=== PATIENT | male | born 1960 | race Caucasian/White ===

== ENCOUNTER 2020-07-04 23:43 | Inpatient (IN) | payer OTHER ==
[~2020-07-04] VITALS: Ht 177.8 cm; Wt 89.0 kg
[~2020-07-04 23:43] MED LIST: ALPR.5 PO; ASPI325 PO; ATEN100; ATEN100 PO; ATOR80 PO; CLOP75 PO; Cymbalta30 MG PO; Cymbalta60 MG PO; FENO160 PO; GABA600 PO; GLYB2.5 PO; GLYB5 PO; HYDACE5 PO; HYDACE7.5 PO; HYDROCODON-ACE1 EACH PO; ISOMON30; ISOMON30 PO; LIRA0.6P; LISI5 PO; LOVA20 PO; MECL25 PO; METF500C PO; METO25; METO50 PO; MULVITMIND PO; NAPR220 PO; NICO14TP TOP; Nitroglycerin0.4 MG SL; Norco 7.5-3251 EACH PO; OMEP20ER PO; ONGLYZA PO; PANT40 PO; Q PAP PO; RANI150; RANO500T PO; Ranexa1000 MG; SILSUL1TC TOP; TEMA15 PO; TERA5 PO; Venlafaxine H37.5 MG PO; [UNRECOGNIZED DRUG - REMARK]
[2020-07-04] MEDS ORDERED: TRAZ50 PO (23:52)
[2020-07-05 00:32] LABS: BASOPHILS ABSOLUTE AUTO 0.05 K/mm3 (0.00-0.23); BASOPHILS PERCENT AUTO 1 % (0-2); EOSINOPHILS ABSOLUTE AUTO 0.17 K/mm3 (0.00-0.68); EOSINOPHILS PERCENT AUTO 2 % (0-6); Hematocrit 42.3 % (37.0-53.0); Hemoglobin 13.9 g/dL (13.5-17.5); IMMATURE GRAN ABSOLUTE AUTO 0.06 K/mm3 (0.00-0.10); IMMATURE GRAN PERCENT AUTO 1 % (0-1); LYMPHOCYTES ABSOLUTE AUTO 1.45 K/mm3 (0.84-5.20); LYMPHOCYTES PERCENT AUTO 16 % (21-46); MONOCYTES ABSOLUTE AUTO 0.92 K/mm3 (0.16-1.47); MONOCYTES PERCENT AUTO 10 % (4-13); Mean Corpuscular HGB 30.3 pg (26.0-34.0); Mean Corpuscular HGB Conc 32.9 g/dL (31.5-36.5); Mean Corpuscular Volume 92 fL (80-100); Mean Platelet Volume 10.1 fL (9.1-12.4); NEUTROPHILS ABSOLUTE AUTO 6.38 K/mm3 (1.96-9.15); NEUTROPHILS PERCENT AUTO 71 % (41-73); Platelet Count 165 K/mm3 (150-400); RDW Coefficient Variation 12.7 % (11.7-14.2); RDW Standard Deviation 43.1 fL (35.1-46.3); Red Blood Cell Count 4.59 M/mm3 (4.30-5.90); White Blood Cell Count 9.03 K/mm3 (4.00-11.30)
[2020-07-05 01:01] LABS: Alanine Aminotransfer (ALT/SGP 22 U/L (12-78); Albumin, Blood 4.2 g/dL (3.4-5.0); Albumin/Globulin Ratio 1.1 (0.8-1.8); Alk Phos 48 U/L (50-136); Anion Gap 10 mmol/L (6-16); Aspartate Aminotrans (AST/SGOT 17 U/L (12-37); Bilirubin, Total 0.4 mg/dL (0.1-1.0); Blood Urea Nitrogen 21 mg/dL (8-24); Bun/Creatinine Ratio 24.5 (12.0-20.0); CO2, Blood 22 mmol/L (21-32); Calcium, Blood 9.2 mg/dL (8.5-10.1); Chloride, Blood 104 mmol/L (98-108); Creatinine, Blood 0.86 mg/dL (0.60-1.20); Globulin, Blood 3.9 g/dL (2.2-4.0); Glomerular Filtration Rate >60 (60-); Glucose, Blood 164 mg/dL (70-99); Magnesium, Blood 1.9 mg/dL (1.6-2.4); Potassium, Blood 4.1 mmol/L (3.5-5.5); Sodium, Blood 136 mmol/L (136-145); Total Protein, Blood 8.1 g/dL (6.4-8.2); Troponin I <0.015 ng/mL (0.000-0.040)
[2020-07-05] MEDS ORDERED: JARDIANCE10 MG PO (05:27)
[2020-07-05] MEDS ORDERED: LIDO700A20 TOP (05:27)
[2020-07-05] MEDS ORDERED: LOSA25 PO (05:28)
[2020-07-05] MEDS ORDERED: NITR.4SL SL (05:29)
[2020-07-05] MEDS ORDERED: DIVA500ER PO (05:31)
[2020-07-05] MEDS ORDERED: LAMOTRIGINE100 M1 PO (05:32)
--- NOTE | 2020-07-05 07:39 | NUR ---
SHIFT SUMMARY PT ARRIVED TO THE UNIT AROUND 0530 IN STABLE CONDITION. PAIN LEVEL REPORTED AT 2/10 AFTER DILAUDID ADMIN IN THE ER. PAIN WAS IN ABD AND CHEST. VITALS STABLE, BP 123/92, HR 81, O2 99% ON ROOM AIR. PT WAS PLEASENT AND COOPERATIVE WITH CARE. THIS NURSE ONLY HAD PT FOR SHORT TIME, UNABLE TO COMPLETE FULL CHARTING. PT ASSESSMENT COMPLETED.
--- NOTE | 2020-07-05 19:43 | NUR ---
SHIFT SUMMARY PT IS A&O X4, VSS, ON RA, INDEPENDENT IN THE ROOM. PAIN MANAGED WITH 1 MG IV DILAUDID. PT HAS COMPLETED PART 1 OF HIS STRESS TEST THIS AM. HAS CONSULTED, ADDITIONAL ABX ORDERED, PT NPO EXCEPT FOR SIPS/CHIPS. HE DENIES NAUSEA. PT ENC TO MINIMIZE PO INTAKE TO DECREASE GASTRIC ACTIVITY. NO OTHER ACUTE CHANGES NOTED. REPORT GIVEN TO DONALDO MARSHALL.
--- NOTE | 2020-07-06 02:05 | NUR ---
ASSUMED CARE AT 1900. REPORTS LATER 5/10 CP AND EXPECTS TO BE ABOUT 2. MID STERNAL CP AND NO RADIATING. DOES NOT FEEL IT IS A PAIN IN STOMACH. DOES RERPORT NAUSEA DUE TO LOWER BLOOD SUGAR AND WHEN BLOOD SUGAR CHECKED 118. HE REPORTS THAT IS LOW FOR HIM AND THAT IS WHY HE IS NAUSEATED. ZOFRAN AND DILAUDID VERY HELPFUL AND OFF TO SLEEP/ [employer] NOTED NOT O2 USED AND NO SOB REPORTED ON EXERTION.SR
--- NOTE | 2020-07-06 06:04 | NUR ---
SHIFT SUMMARY. NO CHANGE FORM ABOVE NOTE. ONE MORE EPISODE OF 5/10 LOCALIZED CP AT LT CHEST. POST LAST IV DILAUDID SLEPT A FEW HOURS AND RELIEF DOWN TO /10. SOME MOIST COUGH NON PRODUCTIVE. BACK TO SLEEP POST DILAUDID. REPORTS SOME MILD NAUSEA AND ZOFRAN GIVEN.. SR. ICE CHIPS. FEW SIPS H2O . NPO FOR STRESS TEST THIS AM.
--- NOTE | 2020-07-06 17:34 | NUR ---
PATIENT IS ALERT AND ORIENTED AND COOPERATIVE WITH CARE. PATIENT C/O RUQ TENDERNESS AND LEFT SIDED LOCAL CHEST PAIN, TREATED PER EMAR. NO COMPLAINTS OF NAUSEA TODAY. DR. RUIZ SAW THE PATIENT TODAY AND CHANGED HIM TO A CLEAR LIQUID DIET, PATIENT IS TOLERATING IT WELL. PATIENT USES THE URINAL AT THE BEDSIDE. PATIENT HAD A SMALL SOFT BM TODAY. THE PATIENT'S WAS AT THE BEDSIDE THIS AFTERNOON. THE CHEMICAL STRESS TEST WAS COMPLETED TODAY. WILL CONTINUE TO MONITOR.
[2020-07-07 05:36] LABS: Creatinine, Blood 0.97 mg/dL (0.60-1.20); Vancomycin, Trough 15.5 ug/mL (5.0-10.0)
--- NOTE | 2020-07-07 05:57 | NUR ---
SHIFT SUMMARY PT A&O X4. VSS. SPO2 > 92% ON RA. MONITOR SHOWS NSR, HR 60's-70's. PT REPORTS CONTINUED L CHEST "PRESSURE" & RUQ "TENDER" W/ PAIN SCALE RANGING 3-5 OUT OF 10 THIS SHIFT. PT REPORTS PAIN "GOES UP & DOWN. IF I DON'T DO SOMETHING ABOUT IT THE PAIN IN MY CHEST MOVES UP INTO MY NECK & JAW." PT MEDICATED W/ PRN IV DILAUDID PER EMAR/PT REQUEST X4 THIS SHIFT W/ PT REPORT OF IMPROVEMENT. PT ON CLEAR LIQUID DIET W/ PT INQUIRY OF WHEN SOLID FOODS MAY BE CONSUMED AGAIN.
--- NOTE | 2020-07-07 18:07 | NUR ---
PT SUMMARY: NO ACUTE CHANGE FOR THE SHIFT, VITALS HAS BEEN STABLE, PT HAS BEEN INDEPENDENT IN THE ROOM. PT CONTINUES TO C/O PAIN ON LEFT SIDE OF THE CHEST CONTROLLED WITH PRN IV MEDICATION DIALUDID, CARDIOLOGISTS CONSULTED DR SHANKS SAW PT TODAY, PT STARTED ON IMDUR, WILL DO ANGIO IN AM, NPO AT MIDNIGHT PT IS AWARE. PT REMAINED ON CLEAR LIQUID DIET FOR BOWEL REST. NO OTHER ISSUES ENCOUNTERED FOR THE SHIFT, PT AHS BEEN CALLING APPROPRIATELY, ABLE TO MAKE NEEDS KNOWN WILL MONITOR UNTIL END OF SHIFT
[2020-07-07] MEDS ORDERED: SERT100 PO (18:24)
--- NOTE | 2020-07-08 06:20 | NUR ---
SHIFT SUMMARY NO ACUTE CHANGES THIS SHIFT. PT A&OX4. SP02>92% ON RA. TELEMETRY READS SR, HR 70'S. PT C/O OF 5/10 L CHEST PAIN DURING SHIFT. MEDICATED W/ DUILADID PER EMAR. PT USED URINAL AT BEDSIDE. PT HAS BEEN NPO SINCE MIDNIGHT FOR ANGIO IN AM. PT C/O OF BEING NPO AND HIS CL DIET. PT STATES "WHEN IM DONE WITH THIS TEST, IM EATING A BIG BURGER". PT ASKED FOR L ARM IV TO BE REMOVED D/T INCONVIENCE OF TUBES CROSSING HIS BODY HE SLEPT. NEW IV PLACED IN L FOREARM. ABX INFUSED THIS SHIFT PER EMAR. PT SLEPT OFF AND ON T/O NIGHT. CALL LIGHT IN REACH. WILL GIVE REPORT TO ONCOMING SHIFT.
--- NOTE | 2020-07-08 08:00 | NUR ---
ASSUMED CARE FROM NOC RN PT WAS AWAKE AND IN BED AT THE TIME OF REPORT. PT IS ALERT AND ORIENTED, VS STABLE. PT REPORTS CONSTANT CHEST PAIN AND THAT THE DILAUDID HAS HELPED RELEIVE THE PAIN. PT IS INDEPENDENT IN THE ROOM AND AWAITING ANGIO THIS AFTERNOONT
--- NOTE | 2020-07-08 11:07 | NUR ---
RETURN FROM [employer] MACHINE OPERATOR PT RETURNED FROM [facility] MACHINE OPERATOR FOR ANGIO AT APPROXIMATELY 1040. TR BAND WAS IN PLACE, REPORTED HAVING 10ML OF AIR IN THE BAND. NO BLEEDING, SWELLING, REDNESS OR PAIN AT THE SITE. ARM BAND IN PLACE OVER TR BAND. PT HAS SENSATION IN HIS HAND AND RADIAL PULSE IS STRONG AND CAP REFILL LESS THAN 3. VS STABLE, PT REMAINS ON RA. PT IS STANDING AT THE BEDSIDE USING THE URINAL NOW.
--- NOTE | 2020-07-08 11:48 | NUR ---
TR BAND 15 MINUTE CHECKS SINCE RETURNING FROM [facility]. NO SWELLING, DRAINAGE, PAIN AT THE SITE. RADIAL PULSE IS STRONG AND CAP REFIL IS LESS THAN 3 SECONDS.
--- NOTE | 2020-07-08 12:55 | NUR ---
TR BAND TR BAND HAS NO DRAINAGE; NO SWELLING, NO REDNESS. PT DENIES PAIN AT THE SITE. RADIAL PULSE IS STRONG, PT HAS NORMAL SENSATION IN FINGERS AND CAP REFILL IS LESS THAN 3 SECONDS. 1ML OF AIR WAS REMOVED FROM THE TR BAND AT 1255 AND PT RIA. WELL; NO BLEEDING; VS STABLE
--- NOTE | 2020-07-08 14:04 | NUR ---
TR BAND DEFLATE TR BAND IS STILL IN PLACE WITH ARM BOARD ON TOP. 2ML OF AIR WAS REMOVED FOR A TOTAL OF 3ML AT THIS POINT. NO DRAINAGE, NO REDNESS, SWELLING APPARENT AT THE SITE. PT DENIES PAIN AND REPORTS HAVING NORMAL SENSATION. RADIAL PULSE STRONG. VS STABLE
--- NOTE | 2020-07-08 14:32 | NUR ---
TR BAND TR BAND REMOVED AN ADDITIONAL 2ML OF AIR. ARM BAND IN PLACE; PT DENIES PAIN OR DISCOMFORT. NO DRAINAGE, NO BLEEDING, COMPLETE SENSATION IN THE FINGERS, RADIAL PULSE STRONG. PT PREPARING FOR CT SCAN
--- NOTE | 2020-07-08 19:23 | NUR ---
NO ACUTE EVENTS THIS SHIFT, PATIENT RADIAL ANGIO SITE RECOVERED, NO DISCHARGE/HEMATOMA NOTED. PATIENT CONTINUED TO COMPLAIN OF GASTRIC PAIN, RELIEVED WITH DILAUDID ADMINISTERED PER EMAR. NO STENTS PLACED, PLANS ARE FOR ANTIANGINAL MANAGEMENT UNTIL GI ISSUES RESOLVED BEFORE OTHER OPTIONS PURSUED. PATIENT IS ALERT AND ORIENTED, VSS, STARTED IN INCREASED DOSES OF METOPROLOL AND IMDUR THIS SHIFT.
[2020-07-09] MEDS ORDERED: GEMF600 PO (00:23)
--- NOTE | 2020-07-09 04:48 | NUR ---
SHIFT SUMMARY NO ACUTE CHANGES THIS SHIFT. PT A&OX4. SP02>92% ON RA. TELEMETRY READS SR, HR 70'S-90'S. PT HAS R RADIAL SITE, NO BLEEDING, BRUISING, OR HEMATOMA. DRESSING WAS ROLLING BACK UPON CARE ASSUMPTION, NEW OPSITE DRESSING PLACED. C/D/I. ARM BOARD IN PLACE. PT C/O OF 5/10 CP/UPPER GASTRIC PAIN, MEDICATED W/ DIULADID X3 THIS SHIFT. PT UP TO BATHROOM INDEPENDENTLY. ABX INFUSED THIS SHIFT. PT WAS ABLE TO SLEEP OFF AND ON T/O NIGHT. CALL LIGHT IN REACH. WILL GIVE REPORT TO ONCOMING SHIFT NURSE.
--- NOTE | 2020-07-09 08:06 | NUR ---
ASSUMED CARE FROM NOC RN PT WAS AWAKE AND WATCHING TV AT TIME OF REPORT. TR BAND WAS REMOVED YESTERDAY, THERE WAS SOME SLIGHT REDNESS AFTER REMOVAL AT THE SITE BUT IT HAS LESSENED BASED ON THE [place] THAT WAS DRAWN AROUND THE REDNESS ON THE WRIST. PT DENIES PAIN OR DISCOMFORT AT THE SITE BUT CONTINUES TO HAVE GASTRIC DISCOMFORT. PT IS INDEPENDENT IN THE ROOM, HAVING BREAKFAST WHILE AWAITING MORNING MEDICATIONS
[2020-07-09] MEDS ORDERED: METO25ER PO (11:46)
[2020-07-09] MEDS ORDERED: Isosorbide Mono30 MG PO (11:47)
[2020-07-09] MEDS ORDERED: CLIN150 PO (11:47)
[2020-07-09] MEDS ORDERED: OXAYDO5 M1 PO (11:48)
--- NOTE | 2020-07-09 13:01 | NUR ---
DISCHARGE PT DISCHARGED AT APPROXIMATELY 1255. PT WAS STABLE. RADIAL SITE DRESSING WAS C/D/I, NO DRAINAGE, PAIN, SWELLING OR REDNESS NOTED. VS STABLE, PT ON RA AND ABLE AND WANTING TO WALK OUT TO THE DOOR FOR DISCHARGE. PT WAS ACCOMPANIED BY RN HALEY TO THE DOOR. PT LEFT WITH HOME MEDICATIONS, DISCHARGE INSTRUCTIONS AND WRITTEN SCRIPT FOR PAIN MEDICATION. PT WAS EDUCATED ON NEW MEDICATIONS TO BE STARTED AT HOME WELL CARE FOR THE RADIAL SITE. PT WAS INSTRUCTED TO CALL IF ANY SIGNS OF BLEEDING OR INFECTION WERE PRESENT AT THE SITE. PT GAVE VERBAL UNDERSTANDING AND SIGNED THE DISCHARGE AGREEMENT.
== END 2020-07-09 13:00 | disposition home health service (06) | DRG 287 ==
LOC: ER 23:43 → PCU 07-05 03:09
PROVIDERS: Emergency Medicine; Surgery; ADMIT Internal Medicine
PROC: 4A023N7 Measurement of Cardiac Sampling and Pressure, Left Heart, Percutaneous Approach (ICD-10-PCS; principal; 2020-07-08)
PROC: B2111ZZ Fluoroscopy of Multiple Coronary Arteries using Low Osmolar Contrast (ICD-10-PCS; 2020-07-08)
DX: I25.110 Atherosclerotic heart disease of native coronary artery with unstable angina pectoris (principal); K29.60 Other gastritis without bleeding; I10 Essential (primary) hypertension; E11.9 Type 2 diabetes mellitus without complications; J44.9 Chronic obstructive pulmonary disease, unspecified; K21.9 Gastro-esophageal reflux disease without esophagitis; M54.9 Dorsalgia, unspecified; F32.9 Major depressive disorder, single episode, unspecified; Z87.891 Personal history of nicotine dependence
CPT/HCPCS: 36415; 71046; 74150; 74176; 76937; 78452; 80053; 80202; 82565; 82947; 83690; 83735; 83880; 84484; 85025; 85347; 93005; 93010; 93017; 93458; 96374; 96375; 96376; 99152; 99153; 99285-25; A9270; A9500; C1769; C1887; C1894; J0692; J0706; J1170; J1644; J1650; J2250; J2270; J2405; J2543; J2785; J3010; J3370; J7030; J7050; J7120; J7512; Q9967

== ENCOUNTER → 2020-08-23 | Outpatient (CLI) | payer OTHER ==
[~2020-08-23] MED LIST changes: +CLIN150 PO; +DIVA500ER PO; +GEMF600 PO; +Isosorbide Mono30 MG PO; +JARDIANCE10 MG PO; +LAMOTRIGINE100 M1 PO; +LIDO700A20 TOP; +LOSA25 PO; +METO25ER PO; +NITR.4SL SL; +OXAYDO5 M1 PO; +SERT100 PO; +TRAZ50 PO
[2020-08-23 15:49] LABS: U Amphetamine Screen Not Detected; U Methamphetamine Screen Not Detected
[2020-08-23 15:50] LABS: U Barbituate Screen Not Detected; U Benzodiazapine Screen Not Detected
[2020-08-23 15:51] LABS: U Buprenorphine Screen Not Detected; U Cannabinoids Screen DETECTED; U Cocaine Screen Not Detected; U Methadone Screen Not Detected; U Opiates Screen DETECTED; U Oxycodone Screen Not Detected; U Phencyclidine Screen Not Detected; U Propoxyphene Screen Not Detected
[2020-08-29 15:07] LABS: TRICYCLIC ANTIDEP Negative ng/mL (Cutoff=100)
[2020-08-30 11:56] LABS: CARBOXY-THC 355 (.)
== END | disposition home or self-care (01) ==
LOC: LAB SHORT 13:26 → LAB 13:26
PROVIDERS: Internal Medicine Hematology & Oncology
DX: Z51.81 Encounter for therapeutic drug level monitoring (principal); Z79.899 Other long term (current) drug therapy
CPT/HCPCS: G0480; G0481

== ENCOUNTER 2020-10-04 08:41 | Day surgery (SDC) | payer OTHER ==
[~2020-10-04] VITALS: Ht 177.8 cm; Wt 91.4 kg
[2020-10-04] MEDS ORDERED: Norco 7.5-3251 EACH PO (09:03)
== END 2020-10-04 11:06 | disposition home or self-care (01) ==
LOC: ORSCSDS 08:41
PROVIDERS: Student in an Organized Health Care Education/Training Program
PROC: 0DB78ZX Excision of Stomach, Pylorus, Via Natural or Artificial Opening Endoscopic, Diagnostic (ICD-10-PCS; principal; 2020-10-04 10:00)
PROC: 0DBN8ZX Excision of Sigmoid Colon, Via Natural or Artificial Opening Endoscopic, Diagnostic (ICD-10-PCS; principal; 2020-10-04 10:00)
PROC: 0DB98ZX Excision of Duodenum, Via Natural or Artificial Opening Endoscopic, Diagnostic (ICD-10-PCS; principal; 2020-10-04 10:00)
PROC: 0DBH8ZX Excision of Cecum, Via Natural or Artificial Opening Endoscopic, Diagnostic (ICD-10-PCS; principal; 2020-10-04 10:00)
PROC: 0DB48ZX Excision of Esophagogastric Junction, Via Natural or Artificial Opening Endoscopic, Diagnostic (ICD-10-PCS; principal; 2020-10-04 10:00)
DX: K21.9 Gastro-esophageal reflux disease without esophagitis (principal); R10.13 Epigastric pain; Z86.010 Personal history of colon polyps; Z80.0 Family history of malignant neoplasm of digestive organs; D12.5 Benign neoplasm of sigmoid colon; D12.0 Benign neoplasm of cecum; D37.4 Neoplasm of uncertain behavior of colon; K64.8 Other hemorrhoids; K29.70 Gastritis, unspecified, without bleeding; I25.10 Atherosclerotic heart disease of native coronary artery without angina pectoris; E11.9 Type 2 diabetes mellitus without complications; E78.5 Hyperlipidemia, unspecified; K76.0 Fatty (change of) liver, not elsewhere classified; Z79.899 Other long term (current) drug therapy; Z79.82 Long term (current) use of aspirin; Z79.84 Long term (current) use of oral hypoglycemic drugs; Z87.891 Personal history of nicotine dependence
CPT/HCPCS: 82947; 88305; 88342; J2704; J7120

== ENCOUNTER → 2022-02-27 | Outpatient (CLI) | payer OTHER ==
[2022-02-27 18:54] LABS: BASOPHILS ABSOLUTE AUTO 0.07 K/mm3 (0.00-0.23); BASOPHILS PERCENT AUTO 1 % (0-2); EOSINOPHILS ABSOLUTE AUTO 0.17 K/mm3 (0.00-0.68); EOSINOPHILS PERCENT AUTO 4 % (0-6); Hematocrit 40.6 % (37.0-53.0); Hemoglobin 13.7 g/dL (13.5-17.5); IMMATURE GRAN ABSOLUTE AUTO 0.03 K/mm3 (0.00-0.10); IMMATURE GRAN PERCENT AUTO 1 % (0-1); LYMPHOCYTES ABSOLUTE AUTO 1.18 K/mm3 (0.84-5.20); LYMPHOCYTES PERCENT AUTO 24 % (21-46); MONOCYTES ABSOLUTE AUTO 0.65 K/mm3 (0.16-1.47); MONOCYTES PERCENT AUTO 13 % (4-13); Mean Corpuscular HGB 32.4 pg (26.0-34.0); Mean Corpuscular HGB Conc 33.7 g/dL (31.5-36.5); Mean Corpuscular Volume 96 fL (80-100); Mean Platelet Volume 10.3 fL (9.1-12.4); NEUTROPHILS ABSOLUTE AUTO 2.81 K/mm3 (1.96-9.15); NEUTROPHILS PERCENT AUTO 57 % (41-73); Platelet Count 172 K/mm3 (150-400); RDW Coefficient Variation 13.1 % (11.7-14.2); RDW Standard Deviation 45.8 fL (35.1-46.3); Red Blood Cell Count 4.23 M/mm3 (4.30-5.90); White Blood Cell Count 4.91 K/mm3 (4.00-11.30)
[2022-02-27 19:47] LABS: Free Thyroxine 1.06 ng/dL (0.70-1.60); LDL/HDL RATIO 2.7; Prostate Specific Antigen 0.465 ng/mL (0.000-4.000); Very Low Density Lipoprot Chol 65 mg/dL (6-32)
[2022-02-27 19:48] LABS: Alanine Aminotransfer (ALT/SGP 18 U/L (12-78); Albumin, Blood 4.1 g/dL (3.4-5.0); Albumin/Globulin Ratio 1.1 (0.8-1.8); Alk Phos 53 U/L (50-136); Anion Gap 8 mmol/L (6-16); Aspartate Aminotrans (AST/SGOT 11 U/L (12-37); Bilirubin, Total 0.4 mg/dL (0.1-1.0); Blood Urea Nitrogen 16 mg/dL (8-24); Bun/Creatinine Ratio 15.5 (12.0-20.0); CHOL/HDL RATIO 6.1; CO2, Blood 25 mmol/L (21-32); Calcium, Blood 9.7 mg/dL (8.5-10.1); Chloride, Blood 105 mmol/L (98-108); Cholesterol 165 mg/dL (50-200); Creatinine, Blood 1.03 mg/dL (0.60-1.20); Globulin, Blood 3.6 g/dL (2.2-4.0); Glomerular Filtration Rate 82 (60-); Glucose, Blood 180 mg/dL (70-99); HDL Cholesterol 27 mg/dL (>39); Low Density Lipoprotein Chol 73 mg/dL (0-110); Potassium, Blood 4.5 mmol/L (3.5-5.5); Sodium, Blood 138 mmol/L (136-145); Total Protein, Blood 7.7 g/dL (6.4-8.2); Triglycerides 327 mg/dL (30-160)
== END | disposition home or self-care (01) ==
LOC: LAB SHORT 10:30 → LAB FUT 02-27 12:45 → EDSTATUS 02-27 12:45
PROVIDERS: Family Medicine
DX: E78.5 Hyperlipidemia, unspecified (principal); N40.0 Benign prostatic hyperplasia without lower urinary tract symptoms
CPT/HCPCS: 80053; 80061; 84153; 84439; 84443; 85025

== ENCOUNTER → 2022-07-27 | Outpatient (CLI) | payer OTHER ==
[2022-07-27 15:23] LABS: U Cannabinoids Screen DETECTED; U Opiates Screen DETECTED
[2022-07-27 15:24] LABS: U Amphetamine Screen Not Detected; U Barbituate Screen Not Detected; U Benzodiazapine Screen Not Detected; U Buprenorphine Screen Not Detected; U Cocaine Screen Not Detected; U Methadone Screen Not Detected; U Methamphetamine Screen Not Detected; U Oxycodone Screen Not Detected; U Phencyclidine Screen Not Detected; U Propoxyphene Screen Not Detected
== END | disposition home or self-care (01) ==
LOC: LAB SHORT 10:50 → LAB 10:50
PROVIDERS: Internal Medicine Hematology & Oncology
DX: Z51.81 Encounter for therapeutic drug level monitoring (principal); Z79.899 Other long term (current) drug therapy

== ENCOUNTER → 2022-09-20 | Outpatient (CLI) | payer OTHER ==
[2022-09-20 18:55] LABS: U Amphetamine Screen Not Detected; U Barbituate Screen Not Detected; U Benzodiazapine Screen DETECTED; U Buprenorphine Screen Not Detected; U Cannabinoids Screen DETECTED; U Cocaine Screen Not Detected; U Methadone Screen Not Detected; U Methamphetamine Screen Not Detected; U Opiates Screen DETECTED; U Oxycodone Screen Not Detected; U Phencyclidine Screen Not Detected; U Propoxyphene Screen Not Detected
== END | disposition home or self-care (01) ==
LOC: LAB 13:04 → LAB SHORT 13:04
PROVIDERS: Internal Medicine Hematology & Oncology
DX: Z51.81 Encounter for therapeutic drug level monitoring (principal); Z79.899 Other long term (current) drug therapy

== ENCOUNTER → 2022-11-21 | Outpatient (CLI) | payer OTHER ==
[2022-11-21 17:59] LABS: U Cannabinoids Screen DETECTED; U Opiates Screen DETECTED
[2022-11-21 18:00] LABS: U Amphetamine Screen Not Detected; U Barbituate Screen Not Detected; U Benzodiazapine Screen Not Detected; U Buprenorphine Screen Not Detected; U Cocaine Screen Not Detected; U Methadone Screen Not Detected; U Methamphetamine Screen Not Detected; U Oxycodone Screen Not Detected; U Phencyclidine Screen Not Detected; U Propoxyphene Screen Not Detected
[2022-11-28 08:14] LABS: TRICYCLIC ANTIDEP Negative ng/mL (Cutoff=100)
== END | disposition home or self-care (01) ==
LOC: LAB 16:42 → LAB SHORT 16:42
PROVIDERS: Internal Medicine Hematology & Oncology
DX: Z51.81 Encounter for therapeutic drug level monitoring (principal); Z79.899 Other long term (current) drug therapy
CPT/HCPCS: G0480; G0481

== ENCOUNTER → 2022-12-25 | Outpatient (CLI) | payer OTHER ==
[2022-12-25 16:42] LABS: U Amphetamine Screen Not Detected; U Barbituate Screen Not Detected; U Benzodiazapine Screen Not Detected; U Buprenorphine Screen Not Detected; U Cannabinoids Screen DETECTED; U Cocaine Screen Not Detected; U Methadone Screen Not Detected; U Methamphetamine Screen Not Detected; U Opiates Screen DETECTED; U Oxycodone Screen Not Detected; U Phencyclidine Screen Not Detected; U Propoxyphene Screen Not Detected
[2023-01-01 00:07] LABS: AMITRIPTYLINE Negative (Cutoff=100); CLOMIPRAMINE Negative (Cutoff=100); CYCLOBENZAPRINE Positive (.); CYCLOBENZAPRINE CONF 136 ng/mL (Cutoff=100); DESIPRAMINE Negative (Cutoff=100); DOXEPIN Negative (Cutoff=100); IMIPRAMINE Negative (Cutoff=100); NORDOXEPIN Negative (Cutoff=100); NORTRIPTYLINE Negative (Cutoff=100); PROTRIPTYLINE Negative (Cutoff=100); TRICYCLIC ANTIDEP Positive ng/mL (Cutoff=100); TRIMIPRAMINE Negative (Cutoff=100)
[2023-01-03 20:10] LABS: CARBOXY-THC 1155 (.)
== END | disposition home or self-care (01) ==
LOC: LAB SHORT 11:01 → LAB 11:01
PROVIDERS: Internal Medicine Hematology & Oncology
DX: Z51.81 Encounter for therapeutic drug level monitoring (principal); Z79.899 Other long term (current) drug therapy
CPT/HCPCS: G0480; G0481

== ENCOUNTER → 2023-01-23 | Outpatient (CLI) | payer OTHER ==
[2023-01-24 12:54] LABS: U Amphetamine Screen Not Detected; U Cannabinoids Screen DETECTED; U Methamphetamine Screen Not Detected; U Opiates Screen DETECTED
[2023-01-24 12:55] LABS: U Barbituate Screen Not Detected; U Benzodiazapine Screen Not Detected; U Buprenorphine Screen Not Detected; U Cocaine Screen Not Detected; U Methadone Screen Not Detected; U Oxycodone Screen Not Detected; U Phencyclidine Screen Not Detected; U Propoxyphene Screen Not Detected
[2023-01-31 05:13] LABS: TRICYCLIC ANTIDEP Negative ng/mL (Cutoff=100)
[2023-02-03 14:10] LABS: CARBOXY-THC >885 (.)
== END | disposition home or self-care (01) ==
LOC: LAB 15:39 → LAB SHORT 15:39
PROVIDERS: Internal Medicine Hematology & Oncology
DX: Z51.81 Encounter for therapeutic drug level monitoring (principal); Z79.899 Other long term (current) drug therapy

== ENCOUNTER → 2023-04-26 | Outpatient (CLI) | payer OTHER ==
[2023-04-26 16:12] LABS: U Amphetamine Screen Not Detected; U Barbituate Screen Not Detected; U Benzodiazapine Screen Not Detected; U Buprenorphine Screen Not Detected; U Cannabinoids Screen DETECTED; U Cocaine Screen Not Detected; U Methadone Screen Not Detected; U Methamphetamine Screen Not Detected; U Opiates Screen DETECTED; U Oxycodone Screen Not Detected; U Phencyclidine Screen Not Detected; U Propoxyphene Screen Not Detected
== END | disposition home or self-care (01) ==
LOC: LAB 14:18 → LAB SHORT 14:18
PROVIDERS: Internal Medicine Hematology & Oncology
DX: E11.40 Type 2 diabetes mellitus with diabetic neuropathy, unspecified (principal); Z79.899 Other long term (current) drug therapy

== ENCOUNTER 2023-05-07 15:31 | Emergency (ER) | payer OTHER ==
[~2023-05-07] VITALS: Ht 177.8 cm; Wt 96.2 kg
[2023-05-07 16:07] LABS: BASOPHILS ABSOLUTE AUTO 0.04 K/mm3 (0.00-0.23); BASOPHILS PERCENT AUTO 1 % (0-2); EOSINOPHILS ABSOLUTE AUTO 0.16 K/mm3 (0.00-0.68); EOSINOPHILS PERCENT AUTO 4 % (0-6); Hematocrit 35.5 % (37.0-53.0); Hemoglobin 12.1 g/dL (13.5-17.5); IMMATURE GRAN ABSOLUTE AUTO 0.02 K/mm3 (0.00-0.10); IMMATURE GRAN PERCENT AUTO 1 % (0-1); LYMPHOCYTES ABSOLUTE AUTO 1.22 K/mm3 (0.84-5.20); LYMPHOCYTES PERCENT AUTO 28 % (21-46); MONOCYTES ABSOLUTE AUTO 0.56 K/mm3 (0.16-1.47); MONOCYTES PERCENT AUTO 13 % (4-13); Mean Corpuscular HGB 32.6 pg (26.0-34.0); Mean Corpuscular HGB Conc 34.1 g/dL (31.5-36.5); Mean Corpuscular Volume 96 fL (80-100); Mean Platelet Volume 9.5 fL (9.1-12.4); NEUTROPHILS ABSOLUTE AUTO 2.37 K/mm3 (1.96-9.15); NEUTROPHILS PERCENT AUTO 54 % (41-73); Platelet Count 153 K/mm3 (150-400); RDW Coefficient Variation 12.9 % (11.7-14.2); RDW Standard Deviation 44.3 fL (35.1-46.3); Red Blood Cell Count 3.71 M/mm3 (4.30-5.90); White Blood Cell Count 4.37 K/mm3 (4.00-11.30)
[2023-05-07 16:28] LABS: Albumin, Blood 3.6 g/dL (3.4-5.0); Bilirubin, Total 0.3 mg/dL (0.1-1.0); Bun/Creatinine Ratio 14.9 (12.0-20.0); Calcium, Blood 8.4 mg/dL (8.5-10.1); Creatinine, Blood 1.21 mg/dL (0.60-1.20); Globulin, Blood 3.6 g/dL (2.2-4.0); Potassium, Blood 4.2 mmol/L (3.5-5.5); Total Protein, Blood 7.2 g/dL (6.4-8.2)
[2023-05-07] MEDS ORDERED: Isosorbide Mono30 MG PO (19:31)
[2023-05-07 19:52] VITALS: BP 128/85
== END 2023-05-07 19:53 | disposition home or self-care (01) ==
LOC: ER 15:31
PROVIDERS: Emergency Medicine
DX: I20.89 Other forms of angina pectoris (principal); I11.0 Hypertensive heart disease with heart failure; I50.9 Heart failure, unspecified; I25.2 Old myocardial infarction; I25.10 Atherosclerotic heart disease of native coronary artery without angina pectoris; E11.9 Type 2 diabetes mellitus without complications; J44.9 Chronic obstructive pulmonary disease, unspecified; K21.9 Gastro-esophageal reflux disease without esophagitis; Z79.84 Long term (current) use of oral hypoglycemic drugs; Z79.02 Long term (current) use of antithrombotics/antiplatelets; Z79.82 Long term (current) use of aspirin; Z79.899 Other long term (current) drug therapy; Z88.8 Allergy status to other drugs, medicaments and biological substances; Z91.09 Other allergy status, other than to drugs and biological substances; R10.11 Right upper quadrant pain
CPT/HCPCS: 71045; 76705; 80053; 83690; 83880; 84484; 85025; 93005; 93010; 99285-25

== ENCOUNTER → 2023-10-23 | Outpatient (CLI) | payer MEDICARE, OTHER ==
[~2023-10-23] MED LIST changes: +ALBU90OI INH; +BASAGLAR K100 UNIT/3 SC; +CLON.5 PO; +EZET10 PO; +MULVITA PO; +ONDA4ODT MM; +PRAZ1 PO; -Ranexa1000 MG; +[UNRECOGNIZED DRUG - OTHER] PO
[2023-10-23 14:57] LABS: U Amphetamine Screen Not Detected; U Barbituate Screen Not Detected; U Benzodiazapine Screen Not Detected; U Buprenorphine Screen Not Detected; U Cannabinoids Screen DETECTED; U Cocaine Screen Not Detected; U Methadone Screen Not Detected; U Methamphetamine Screen Not Detected; U Opiates Screen DETECTED; U Oxycodone Screen Not Detected; U Phencyclidine Screen Not Detected
== END | disposition home or self-care (01) ==
LOC: LAB 10:41 → LAB SHORT 10:41
PROVIDERS: Internal Medicine Hematology & Oncology
DX: Z51.81 Encounter for therapeutic drug level monitoring (principal); Z79.899 Other long term (current) drug therapy

== ENCOUNTER 2023-10-24 06:45 | Inpatient (IN) | payer MEDICARE, OTHER ==
[~2023-10-24] VITALS: Ht 177.8 cm; Wt 97.5 kg
[2023-10-24] VITALS (9 sets, daily range): BP systolic 118–134; BP diastolic 68–90
[2023-10-24] MEDS ORDERED: Nitroglycerin 2 MG/20 ML BTL ONE (07:08)
[2023-10-24] MEDS ORDERED: Heparin Sodium 1000 Units/ML 10ML MDV ONE ×2 (07:08→07:35)
[2023-10-24] MEDS ORDERED: Verapamil HCL 2.5 MG/ML 2ML Injection ONE (07:08)
[2023-10-24] MEDS ORDERED: NS 250 ML IV ONE (07:08)
[2023-10-24] MEDS ORDERED: NS 1,000 ML IV ONE ×2 (07:08→07:34)
[2023-10-24] MEDS ORDERED: FentaNYL Citrate 50 MCG/ML 2 ML Injection ONE ×2 (07:35→07:53)
[2023-10-24] MEDS ORDERED: Midazolam HCl 1MG / ML 2ML Vial ONE ×2 (07:35→07:53)
[2023-10-24] MEDS ORDERED: Nitroglycerin 0.4 MG SUBL SL PRN (11:15)
[2023-10-24] MEDS ORDERED: Acetaminophen 325 MG TABLET PO PRN (11:15)
[2023-10-24] MEDS ORDERED: HYDROcodone 7.5-APAP 325 TAB PO PRN (11:15)
[2023-10-24] MEDS ORDERED: ClonazePAM 0.5 MG Tab PO PRN (11:20)
[2023-10-24] MEDS ORDERED: Ondansetron 4 MG SoluTab MM PRN (11:30)
[2023-10-24] MEDS ORDERED: Insulin Regular 100 UNIT/ML 10ML Vial SC SCH (11:30)
[2023-10-24] MEDS ORDERED: Albuterol HFA200 ACT/6.7 GM INH INH PRN (11:45)
[2023-10-24] MEDS ORDERED: Lidocaine 4% 1 Patch TOP PRN (11:55)
[2023-10-24] MEDS ORDERED: Ezetimibe 10 MG Tab PO SCH (12:04)
[2023-10-24] MEDS ORDERED: Empagliflozin 10 MG TAB PO SCH (12:05)
[2023-10-24] MEDS ORDERED: Metoprolol Succinate 25 MG TABCR PO SCH ×2 (12:05→12:10)
[2023-10-24] MEDS ORDERED: Divalproex Sodium 500 MG TABCR PO SCH ×2 (12:05→21:00)
[2023-10-24] MEDS ORDERED: Sertraline HCl 100 MG Tab PO SCH ×2 (12:05→12:10)
[2023-10-24] MEDS ORDERED: Ranolazine 500 MG ER Tablet PO SCH ×3 (12:05→21:00)
[2023-10-24] MEDS ORDERED: Isosorbide Mononitrate 60 MG TABCR PO SCH (12:05)
[2023-10-24] MEDS ORDERED: Losartan Potassium 25 MG Tab PO SCH ×2 (12:05→12:10)
[2023-10-24] MEDS ORDERED: Losartan Potassium 25 MG Tab PO ONE (13:25)
[2023-10-24] MEDS ORDERED: Sertraline HCl 100 MG Tab PO ONE (13:25)
[2023-10-24] MEDS ORDERED: Ranolazine 500 MG ER Tablet PO ONE (13:25)
[2023-10-24] MEDS ORDERED: Metoprolol Succinate 25 MG TABCR PO ONE (13:25)
[2023-10-24 14:25] LABS: BASOPHILS ABSOLUTE AUTO 0.05 K/mm3 (0.00-0.23); BASOPHILS PERCENT AUTO 1 % (0-2); EOSINOPHILS ABSOLUTE AUTO 0.32 K/mm3 (0.00-0.68); EOSINOPHILS PERCENT AUTO 7 % (0-6); Hematocrit 36.2 % (37.0-53.0); Hemoglobin 12.7 g/dL (13.5-17.5); IMMATURE GRAN ABSOLUTE AUTO 0.03 K/mm3 (0.00-0.10); IMMATURE GRAN PERCENT AUTO 1 % (0-1); LYMPHOCYTES ABSOLUTE AUTO 1.39 K/mm3 (0.84-5.20); LYMPHOCYTES PERCENT AUTO 31 % (21-46); MONOCYTES ABSOLUTE AUTO 0.61 K/mm3 (0.16-1.47); MONOCYTES PERCENT AUTO 13 % (4-13); Mean Corpuscular HGB Conc 35.1 g/dL (31.5-36.5); Mean Corpuscular Volume 97 fL (80-100); Mean Platelet Volume 9.8 fL (9.1-12.4); NEUTROPHILS ABSOLUTE AUTO 2.15 K/mm3 (1.96-9.15); NEUTROPHILS PERCENT AUTO 47 % (41-73); Platelet Count 138 K/mm3 (150-400); RDW Standard Deviation 46.4 fL (35.1-46.3); Red Blood Cell Count 3.74 M/mm3 (4.30-5.90); White Blood Cell Count 4.55 K/mm3 (4.00-11.30)
[2023-10-24 14:29] LABS: Bun/Creatinine Ratio 14.2 (12.0-20.0); Calcium, Blood 8.6 mg/dL (8.5-10.1); Creatinine, Blood 1.06 mg/dL (0.60-1.20); Potassium, Blood 4.1 mmol/L (3.5-5.5)
[2023-10-24] MEDS ORDERED: Pantoprazole Sodium 40 MG Tab PO ONE (14:50)
--- NOTE | 2023-10-24 16:37 | NUR ---
PT ARRIVED TO ROOM [id number] FROM ADMINISTRATIVE SECRETARY. R RADIAL SITE FULLY RECOVERED, ARM BOARD IN PLACE. PT EDUCATED ABOUT KEEPING WRIST IMOBILIZED, VERBALIZED UNDERSTANDING. PT IS AWAITING TRANSFER TO [facility] FOR CABG. VSS. A&OX4. MEDICATED PER EMAR FOR CHRONIC BACK PAIN. WILL CONTINUE TO MONITOR/TREAT AND GIVE REPORT TO NOC SHIFT RN AT CHANGE OF SHIFT.
[2023-10-24] MEDS ORDERED: Insulin Glargine-Yfgn 100 Unit/mL 3 ML SYR SC SCH ×2 (18:00)
[2023-10-24] MEDS ORDERED: Prazosin HCl 1 MG Cap PO SCH (21:00)
[2023-10-24] MEDS ORDERED: TraZODone HCl 100 MG Tab PO SCH (21:00)
[2023-10-25] MEDS ORDERED: Insulin Glargine-Yfgn 100 Unit/mL 3 ML SYR SC SCH ×2 (09:00)
[2023-10-25] MEDS ORDERED: Isosorbide Mononitrate 60 MG TABCR PO SCH (09:00)
[2023-10-25] MEDS ORDERED: Empagliflozin 10 MG TAB PO SCH (09:00)
[2023-10-25] MEDS ORDERED: Sertraline HCl 100 MG Tab PO SCH (09:00)
[2023-10-25] MEDS ORDERED: Ezetimibe 10 MG Tab PO SCH (09:00)
[2023-10-25] MEDS ORDERED: Atorvastatin 40 MG Tab PO SCH (09:00)
[2023-10-25] MEDS ORDERED: Losartan Potassium 25 MG Tab PO SCH (09:00)
[2023-10-25] MEDS ORDERED: Heparin Sodium,Porcine 5,000 UNIT/0.5 ML SDV SC SCH (09:00)
[2023-10-25] MEDS ORDERED: Pantoprazole Sodium 40 MG Tab PO SCH (09:00)
[2023-10-25] MEDS ORDERED: Metoprolol Succinate 25 MG TABCR PO SCH (09:00)
[2023-10-25] MEDS ORDERED: Aspirin 325 MG Tab PO SCH (09:00)
== END 2023-10-24 19:16 | disposition short-term general hospital (02) | DRG 287 ==
LOC: MHTC 06:45 → EDSTATUS 06:47 → MHTC 06:50 → PCU 12:08
PROVIDERS: Internal Medicine; ADMIT Student in an Organized Health Care Education/Training Program
PROC: 4A023N7 Measurement of Cardiac Sampling and Pressure, Left Heart, Percutaneous Approach (ICD-10-PCS; principal; 2023-10-24)
PROC: B2111ZZ Fluoroscopy of Multiple Coronary Arteries using Low Osmolar Contrast (ICD-10-PCS; 2023-10-24)
DX: I25.10 Atherosclerotic heart disease of native coronary artery without angina pectoris (principal); E11.69 Type 2 diabetes mellitus with other specified complication; I15.9 Secondary hypertension, unspecified; E78.5 Hyperlipidemia, unspecified; K29.70 Gastritis, unspecified, without bleeding; F43.10 Post-traumatic stress disorder, unspecified; G89.29 Other chronic pain; M54.9 Dorsalgia, unspecified; D64.9 Anemia, unspecified; I11.0 Hypertensive heart disease with heart failure; F41.8 Other specified anxiety disorders; I50.9 Heart failure, unspecified; G47.33 Obstructive sleep apnea (adult) (pediatric); I25.2 Old myocardial infarction; Z98.890 Other specified postprocedural states; Z88.8 Allergy status to other drugs, medicaments and biological substances; Z79.4 Long term (current) use of insulin; Z79.02 Long term (current) use of antithrombotics/antiplatelets; Z79.82 Long term (current) use of aspirin; Z79.899 Other long term (current) drug therapy
CPT/HCPCS: 36415; 76937; 80048; 82947; 85025; 93306; 93454; 99152; 99153; A9270; C1769; C1894; J1644; J1815; J2250; J3010; J7030; J7050; Q9967

== ENCOUNTER → 2023-12-25 | Outpatient (CLI) | payer MEDICARE, OTHER ==
[2023-12-25 16:14] LABS: U Amphetamine Screen Not Detected; U Barbituate Screen Not Detected; U Benzodiazapine Screen DETECTED; U Buprenorphine Screen Not Detected; U Cannabinoids Screen DETECTED; U Cocaine Screen Not Detected; U Methadone Screen Not Detected; U Methamphetamine Screen Not Detected; U Opiates Screen DETECTED; U Oxycodone Screen Not Detected; U Phencyclidine Screen Not Detected
== END ==
LOC: LAB SHORT 14:52 → LAB 14:52
PROVIDERS: Internal Medicine Hematology & Oncology
DX: Z51.81 Encounter for therapeutic drug level monitoring (principal); Z79.899 Other long term (current) drug therapy

== ENCOUNTER → 2024-05-22 | Outpatient (CLI) | payer MEDICARE, OTHER ==
[2024-05-22 14:12] LABS: U Amphetamine Screen Not Detected; U Barbituate Screen Not Detected; U Benzodiazapine Screen Not Detected; U Buprenorphine Screen Not Detected; U Cannabinoids Screen DETECTED; U Cocaine Screen Not Detected; U Methadone Screen Not Detected; U Methamphetamine Screen Not Detected; U Opiates Screen DETECTED; U Phencyclidine Screen Not Detected
[2024-05-22 14:13] LABS: U Oxycodone Screen Not Detected
== END | disposition home or self-care (01) ==
LOC: LAB SHORT 12:45 → LAB 12:45
PROVIDERS: Internal Medicine Hematology & Oncology
DX: Z51.81 Encounter for therapeutic drug level monitoring (principal); Z79.899 Other long term (current) drug therapy

== ENCOUNTER → 2024-06-26 | Outpatient (CLI) | payer MEDICARE, OTHER ==
[2024-06-26 15:01] LABS: U Amphetamine Screen Not Detected; U Barbituate Screen Not Detected; U Benzodiazapine Screen Not Detected; U Buprenorphine Screen Not Detected; U Cannabinoids Screen DETECTED; U Cocaine Screen Not Detected; U Methadone Screen Not Detected; U Methamphetamine Screen Not Detected; U Opiates Screen DETECTED; U Oxycodone Screen Not Detected; U Phencyclidine Screen Not Detected
== END ==
LOC: LAB 13:15 → LAB SHORT 13:15
PROVIDERS: Internal Medicine Hematology & Oncology
DX: Z51.81 Encounter for therapeutic drug level monitoring (principal); Z79.899 Other long term (current) drug therapy

== ENCOUNTER → 2025-03-19 | Outpatient (CLI) | payer MEDICARE, OTHER ==
[2025-03-19 16:52] LABS: U Cannabinoids Screen DETECTED; U Opiates Screen DETECTED
[2025-03-19 16:53] LABS: U Amphetamine Screen Not Detected; U Barbituate Screen Not Detected; U Benzodiazapine Screen Not Detected; U Buprenorphine Screen Not Detected; U Cocaine Screen Not Detected; U Methadone Screen Not Detected; U Methamphetamine Screen Not Detected; U Oxycodone Screen Not Detected; U Phencyclidine Screen Not Detected
== END ==
LOC: LAB SHORT 13:31 → LAB 13:31
PROVIDERS: Internal Medicine Hematology & Oncology
DX: E11.42 Type 2 diabetes mellitus with diabetic polyneuropathy (principal); Z79.899 Other long term (current) drug therapy